=== PATIENT | male | born 1990 | race Caucasian/White ===

== ENCOUNTER 2024-04-03 01:47 | Emergency (ER) | payer BC ==
[~2024-04-03] VITALS: Ht 175.3 cm; Wt 85.3 kg
[2024-04-03 01:50] VITALS: PULSE 54; RESP 17; TEMP 98.4
[2024-04-03] MEDS ORDERED: AMOXICILLIN500 MG PO (02:22)
[2024-04-03] MEDS ORDERED: AMOXICILLIN 250 MG CAP PO ONE (02:30)
[2024-04-03 02:38] VITALS: BP 142/84; PULSE 73; RESP 18; O2SAT 99
[2024-04-03] MEDS: IBUPROFEN 600 MG TAB PO STA (02:41)
[2024-04-03] MEDS: AMOXICILLIN/CLAVULANATE K 875 MG TAB PO STA (02:42)
== END 2024-04-03 02:40 | disposition home or self-care (01) ==
LOC: FSED 02:20
DX: J02.9 Acute pharyngitis, unspecified (principal)
CPT/HCPCS: 99283